=== PATIENT | female | born 1980 | race American Indian/Alaskan Native ===

== ENCOUNTER 2017-01-22 21:25 | Emergency (ER) | payer BC, OTHER | END 2017-01-22 21:55 | disposition left against medical advice (07) | LOC: DL.ED 21:25 | DX: Z53.21 Procedure and treatment not carried out due to patient leaving prior to being seen by health care provider (principal) | CPT/HCPCS: 99283 ==

== ENCOUNTER 2018-12-20 12:57 | Emergency (ER) | payer BC, MEDICAID, OTHER ==
--- NOTE | 2018-12-20 14:31 | EDM.PDOC ---
ED HPI GENERAL MEDICAL PROBLEM - General Chief Complaint: ENT Problem Stated Complaint: THROAT,CHEST,AND BACK HURT [id number] Time Seen by Provider: 12/20/18 14:20 Source of Information: Reports: Patient History Limitations: Reports: No Limitations - History of Present Illness INITIAL COMMENTS - FREE TEXT/NARRATIVE: This 38 yo female patient reports to the ED with a sore throat. The patient reports increased pain over the past couple of days. The patient has taken some Robitussin, but has not had any symptom relief. 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 Musculoskeletal History: Reports: None Neurological History: Reports: None Psychiatric History: Reports: None Endocrine/Metabolic History: Reports: None Hematologic History: Reports: None Immunologic History: Reports: None Oncologic (Cancer) History: Reports: None Dermatologic History: Reports: None - Infectious Disease History Infectious Disease History: Reports: None - Past Surgical History Head Surgeries/Procedures: Reports: None Social & Family History - Family History Family Medical History: Noncontributory - Tobacco Use Smoking Status *Q: Never Smoker Second Hand Smoke Exposure: No - Caffeine Use Caffeine Use: Reports: None - Recreational Drug Use Recreational Drug Use: No ED ROS ENT - Review of Systems Review Of Systems: ROS reveals no pertinent complaints other than HPI. ED EXAM, ENT - Physical Exam Exam: See Below Exam Limited By: No Limitations General Appearance: Alert, WD/WN, Moderate Distress Eye Exam: Bilateral Eye: EOMI, Normal Inspection, PERRL Ears: Normal External Exam, Normal Canal, Hearing Grossly Normal, Normal TMs Nose: Normal Inspection, Normal Mucousa, No Blood Mouth/Throat: Pharyngeal Erythema Head: Atraumatic, Normocephalic Neck: Normal Inspection, Supple, Non-Tender, Full Range of Motion Respiratory/Chest: No Respiratory Distress, Lungs Clear, Normal Breath Sounds, No Accessory Muscle Use, Chest Non-Tender Cardiovascular: Normal Peripheral Pulses, Regular Rate, Rhythm, No Edema, No Gallop, No JVD, No Murmur, No Rub GI/Abdominal: Normal Bowel Sounds, Soft, Non-Tender, No Organomegaly, No Distention, No Abnormal Bruit, No Mass (Female) Exam: Deferred Rectal (Female) Exam: Deferred Back: Normal Inspection, Full Range of Motion Extremities: Normal Inspection, Normal Range of Motion, Non-Tender, No Pedal Edema, Normal Capillary Refill Neurological: Alert, Oriented, CN II-XII Intact, Normal Cognition, Normal Gait, Normal Reflexes, No Motor/Sensory Deficits Psychiatric: Normal Affect, Normal Mood Skin: Dry, Intact, Normal Color, No Rash, Increased Warmth Lymphatic: No Adenopathy Course - Vital Signs Last Recorded V/S: Last Vital Signs Temp 36.1 C 12/20/18 13:09 Pulse 110 H 12/20/18 13:09 Resp 18 12/20/18 13:09 BP 145/92 H 12/20/18 13:09 Pulse Ox 95 12/20/18 13:09 - Orders/Labs/Meds Orders: Active Orders 24 hr Category Date Time Status CULTURE STREP A CONFIRMATION [RM] Stat Lab 12/20/18 13:07 Results STREP SCRN A RAPID W CULT CONF [RM] Stat Lab 12/20/18 13:07 Results Departure - Departure Time of Disposition: 14:28 Disposition: Home, Self-Care 01 Condition: Fair Clinical Impression: Pharyngitis Qualifiers: Pharyngitis/tonsillitis etiology: unspecified etiology Qualified Code(s): J02.9 - Acute pharyngitis, unspecified - Discharge Information *PRESCRIPTION DRUG MONITORING PROGRAM REVIEWED*: Not Applicable *COPY OF PRESCRIPTION DRUG MONITORING REPORT IN PATIENT DORINDA: Not Applicable Instructions: Upper Respiratory Infection, Adult, [id number] Care Plan Goals: The patient was advised of the examination and lab results during the visit. The patient was discharged with a script for Azithromycin (250 mg) #6 to take 2 by mouth day 1 and 1 by mouth on days 2-5. The patient was encouraged to take over the counter medications for temporary symptom relief. If the patient has any additional symptoms or concerns, the patient should either return to the emergency department or visit her primary care facility. - My Orders Last 24 Hours: My Active Orders 12/20/18 13:07 CULTURE STREP A CONFIRMATION [RM] Stat STREP SCRN A RAPID W CULT CONF [RM] Stat - Assessment/Plan Last 24 Hours: My Active Orders 12/20/18 13:07 CULTURE STREP A CONFIRMATION [RM] Stat STREP SCRN A RAPID W CULT CONF [] Stat
== END 2018-12-20 14:47 | disposition home or self-care (01) ==
LOC: DL.ED 12:57
DX: J02.9 Acute pharyngitis, unspecified (principal)
CPT/HCPCS: 87081; 87430; 99283

== ENCOUNTER 2022-03-22 02:35 | Emergency (ER) | payer MEDICAID ==
[2022-03-22 03:32] LABS: ANION GAP 12.7 mEq/L (7-13)
== END 2022-03-22 03:45 | disposition home or self-care (01) ==
LOC: DL.ED 02:35
DX: T45.0X1A Poisoning by antiallergic and antiemetic drugs, accidental (unintentional), initial encounter (principal); D64.9 Anemia, unspecified
CPT/HCPCS: 36415; 80053; 82947; 83735; 85025; 99284

== ENCOUNTER 2024-12-27 09:31 | Emergency (ER) | payer BC, MEDICAID ==
[2024-12-27 10:28] LABS: APPEARANCE,URINE CLEAR (CLEAR); BILIRUBIN,URINE NEGATIVE (NEGATIVE); COLOR,URINE STRAW (YELLOW); GLUCOSE,URINE NEGATIVE (NEGATIVE); KETONES,URINE NEGATIVE (NEGATIVE); LEUKOCYTE ESTERASE,URINE SMALL (NEGATIVE); NITRITE,URINE NEGATIVE (NEGATIVE); OCCULT BLOOD,URINE SMALL (NEGATIVE); PROTEIN,URINE NEGATIVE (NEGATIVE); UROBILINOGEN,URINE 0.2 mg/dL (0.2-1.0)
[2024-12-27 10:46] LABS: BACTERIA,URINE RARE /HPF (0-FEW/HPF); EPITHELIAL CELLS,URINE FEW /HPF (NOT SEEN); RBC,URINE 0-5 /HPF (0-5)
[2024-12-27] MEDS ORDERED: Ketorolac 30 MG/ML SDV IVPUSH ONE (12:02)
[2024-12-27] MEDS: Ketorolac 30 MG/ML SDV IM ONE (12:14)
== END 2024-12-27 12:11 | disposition home or self-care (01) ==
LOC: DL.ED 09:31
DX: R10.30 Lower abdominal pain, unspecified (principal); R31.9 Hematuria, unspecified
CPT/HCPCS: 74176; 81001; 81025; 87086; 96372; 99283; 99284; J1885